=== PATIENT | male | born 1990 | race Caucasian/White ===

== ENCOUNTER 2018-03-06 10:00 | Outpatient (CLI) | payer OTHER ==
[2018-03-06 10:24] LABS: Bilirubin Negative (Negative); Blood, Urine Small (Negative); Clarity CLEAR (Clear); Glucose, Urine (Dipstick) Negative (Negative); Leukocyte Negative (Negative); Nitrite Negative (Negative); Protein, Urine (Dipstick) Negative (Neg-Trace); Specific Gravity, Urine 1.017 (1.002-1.036); Urobilinogen 0.2 mg/dL (0.2-1.0)
[2018-03-06 10:27] LABS: Bacteria/HPF None Seen HPF (None Seen); Hyaline Casts/LPF 0-3 HYALINE CAST LPF (0-3 Hyaline); RBC/HPF 0-3 HPF (0-3); Squamous Epithelial None Seen HPF (0-3); WBC/HPF 0-3 HPF (0-3)
--- NOTE | 2018-03-06 11:18 | RAD ---
ABDOMEN SINGLE VIEW KUB SERIES: Indication: Kidney stones. FINDINGS: Punctate densities overlie the left renal shadow. Right renal shadow is obscured by bowel content. No suspicious calcifications are seen overlying the course of the ureters or the pelvis. Osseous struct ures are intact. IMPRESSION: Punctate densities overlie the left renal shadow could reflect nephrolithiasis and may be further ass essed with CT imaging as necessary. POS: TONY
== END 2018-03-06 10:01 | disposition home or self-care (01) ==
LOC: RAD 10:00
PROVIDERS: ATTEND Urology
DX: N20.0 Calculus of kidney (principal); N28.89 Other specified disorders of kidney and ureter
CPT/HCPCS: 74018; 81001